=== PATIENT | male | born 1945 | race Two or more races ===

== ENCOUNTER → 2022-05-07 | Outpatient (CLI) | payer OTHER, MEDICAID ==
[~2022-05-07] MED LIST: ALBUTEROL SULF 2.5 MG/0.5ML(0.5%) NEB SOLN ONE; HYDR-4833
== END | disposition home or self-care (01) ==
LOC: RT 08:56
PROVIDERS: ATTEND Internal Medicine Pulmonary Disease
DX: J44.9 Chronic obstructive pulmonary disease, unspecified (principal); F17.210 Nicotine dependence, cigarettes, uncomplicated
CPT/HCPCS: 94060; 94727; 94729